=== PATIENT | female | born 1985 | race Caucasian/White ===

== ENCOUNTER 2016-02-15 10:39 | Emergency (ER) ==
[2016-02-15 10:50] VITALS: BP 152/87
[2016-02-15] MEDS ORDERED: ROCEPHIN IM ONE (11:12)
[2016-02-15] MEDS ORDERED: XYLOCAINE-MPF 1% INJ ONE (11:12)
--- NOTE | 2016-02-15 11:16 | PROVIDER DOCUMENTATION ---
[facility]-E[facility] General - General Chief Complaint: Toothache Stated Complaint: TOOTHACHE Time Seen by Provider: 02/15/16 11:05 Source: patient Allergies/Adverse Reactions: Patient Allergies Allergy/AdvReac Type Severity Reaction Status Date / Time No Known Allergies Allergy Verified 11/22/14 01:26 Home Medications: Methadone HCl [Methadose] 130 mg PO DAILY 08/09/14 - History of Present Illness-EENT General EENT Location: reports: mouth Quality of Pain: reports: aching Severity: reports: mild Onset/Duration: reports: gradual, 3 days ago Timing: reports: still present, constant Prearrival Treatment: Initiated no prearrival treatment Associated Symptoms: reports: facial pain/swelling. denies: fever, nasal congestion/drainage Locality of Occurance: Home Similar Symptoms Previously?: No Recently seen or treated by another doctor?: No Review of Systems - Adult - REVIEW OF SYSTEMS - ADULT Constitutional: denies: chills, fever Eyes: reports: no symptoms reported Ears, Nose, Mouth & Throat: reports: mouth/dental pain, mouth swelling. denies : hearing loss, throat pain Cardiovascular: reports: no symptoms reported Respiratory: reports: no symptoms reported Gastrointestinal: reports: no symptoms reported Genitourinary: reports: no symptoms reported Musculoskeletal: reports: no symptoms reported Integumentary: reports: no symptoms reported Neurological: reports: no symptoms reported Psychiatric: reports: no symptoms reported Endocrine: reports: no symptoms reported Hematologic/Lymphatic: reports: no symptoms reported Allergic/Immunologic: reports: no symptoms reported All Other Systems: Reviewed and Negative Past History - Adult - PAST MEDICAL HISTORY-ADULT Review of Records: reports: Old Records Reviewed, Nursing Assessment Review, Medications Reviewed Musculoskeletal: reports: chronic pain (right hip and back) - PRIOR SURGERIES/PROCEDURES Surgical/Procedure History: reports: cholecystectomy, - IMMUNIZATION STATUS Childhood Immunizations: See Nurse Assessment Flu Vaccine: See Nurse Assessment - FAMILY HISTORY Family History: reviewed, not pertinent - SOCIAL HISTORY Smoking: cigarettes, less than 1 pack/day Living Situation: family Physical Exam- EENT - Physical Exam EENT Initial Vital Signs Reviewed: Yes General Appearance: alert, no apparent distress Eye Exam: bilateral eye: normal inspection, PERRL Ear Exam: bilateral ear: canal normal, TM normal Nasal Exam: normal inspection. negative: active bleeding Throat Exam: dental tenderness, mandibular swelling, other (fx tooth, dental decay) Neck: full range of motion, normal inspection Respiratory: lungs clear, normal breath sounds, no respiratory distress, no accessory muscle use Cardiovascular: normal peripheral pulses, regular rate, rhythm Abdominal Exam: normal bowel sounds, non tender, soft Extremity: normal range of motion, normal inspection Integumentary: normal color, warm/dry Neurologic: grossly normal, no motor/sensory deficits Psych/Mental Status: normal mood/affect, normal thought content, normal thought process, oriented x 3 Progress - PLAN OF CARE/RESULTS Progress/Plan/Lab Results: Vital Signs Temp Pulse Resp BP Pulse Ox 02/15/16 10:47 98 F 95 H 18 152/87 99 No Known Allergies Allergy (Verified 11/22/14 01:26) Methadone HCl [Methadose] 130 mg PO DAILY 08/09/14 Orders Category Date Time Status CefTRIAXONE [Rocephin] Med 02/15/16 11:12 Discontinued 1 gm IM NOW ONE Lidocaine 1% Pf [Xylocaine-Mpf 1%] Med 02/15/16 11:12 Discontinued 5 ml INJ NOW ONE pt will be d/c home with rx, f/u with dentist, rx for antibiotic given no pain meds due to patient being on methadone Departure - Departure Time of Disposition Order: 11:15 DIAGNOSIS: Fracture, tooth, Dental abscess, Dental decay Disposition: HOME 01 Certified Medical Emergency: Emergent Condition: Stable Additional Instructions: f/u with dentist ED Follow Up Instructions: You have been treated by a care provider in the Emergency Department. These instructions are being provided to you so you can have an understanding of how to care for yourself upon discharge. Upon discharge from the Emergency Department, you are responsible for making arrangements for follow-up care by a physician of your choice. Take all prescribed medications as directed. Return to the Emergency Department immediately for any new or worsening symptoms. You may call the Physician Referral phone number at [phone] to obtain a list of Physicians who are taking new patients. Instructions: Dental Abscess, Dental Pain, [id number] Attestation - Scribe Verification/Attestation Scribe:: Leoncio Dyson Acting as Scribe for:: Tiff Matthew Scribe documention review:: This chart was documented by a scribe and accurately reflects the service the provider performed and the decisions made by the provider. Physician Attestation - Physician Attestation I, the provider, attest to the following statement:: Tiff Matthew Physician documentation Attestation:: This documentation recorded by the scribe accurately reflects the service I personally performed and the decisions made by me.
== END 2016-02-15 11:36 | disposition home or self-care (01) ==
LOC: P.ED 10:39
DX: S02.5XXA Fracture of tooth (traumatic), initial encounter for closed fracture (principal); K04.7 Periapical abscess without sinus; K02.9 Dental caries, unspecified; K08.89 Other specified disorders of teeth and supporting structures; R22.0 Localized swelling, mass and lump, head; G89.29 Other chronic pain; M25.551 Pain in right hip; M54.9 Dorsalgia, unspecified; F17.210 Nicotine dependence, cigarettes, uncomplicated; Z79.899 Other long term (current) drug therapy
CPT/HCPCS: 96372; J0696